=== PATIENT | male | born 1960 | race Caucasian/White ===

== ENCOUNTER 2023-08-01 11:21 | Emergency (ER) | payer MEDICARE, BC, SELFPAY ==
[2023-08-01 11:41] VITALS: BP 140/91; PULSE 74; RESP 16; TEMP 37.4; O2SAT 96; BMI 25.8
--- NOTE | 2023-08-01 11:51 | ED.CHESTPAIN ---
HPI - Chest Pain General Time Seen by Provider: 11:51 Date Seen: 08/01/23 Chief Complaint: Chest Pain Stated Complaint: chest pain Time Seen by Provider: 08/01/23 11:41 Source: patient and RN notes reviewed Mode of arrival: ambulatory Limitations: no limitations History of Present Illness HPI narrative: This 63-year-old male is coming in to the ER with concern of some left-sided chest symptoms he had earlier today. Patient states he had some baked goods for breakfast, after that around 9:00 a.m. and lasting for maybe 2 hours, had indigestion/heartburn feelings but the pain moved into his left chest. He has no prior history of any cardiac or respiratory disease. He is a nonsmoker. He does note history of heartburn. He believes he had an EGD maybe 25 years ago. He does endorse a using some [id number] antacid/proton pump inhibitor type medicines periodically. He has not had any cough or cold symptoms, noted no palpitations or irregular heartbeat, no shortness of breath with these symptoms. He is asymptomatic now. He notes his mom had congestive heart failure but was obese, she had no known heart attack or ischemic disease that he is aware of. There is no family history of anyone with MD that he is aware of. MD complaint: chest pain Risk Factors Coronary artery disease risk factors: hyperlipidemia and hypertension Related Data Home Medications Medication Instructions Recorded Confirmed atorvastatin 20 mg tablet 20 mg PO QPM 08/01/23 08/01/23 chlorthalidone 25 mg tablet 12.5 mg PO DAILY blood pressure 08/01/23 08/01/23 lisinopril 40 mg tablet 40 mg PO DAILY 08/01/23 08/01/23 Allergies Allergy/AdvReac Type Severity Reaction Status Date / Time No Known Drug Allergies Allergy Verified 08/01/23 11:44 Review of Systems Status of ROS Reports: 6 or more systems reviewed and unremarkable except as noted in History and below PFSH PFSH Social History Smoking Status: Never smoker How often do you have a drink containing alcohol: 2-3 times a week AUDIT-C Alcohol total score: 3 Non-prescribed substance use: denies use Exam Const Vital Signs, click to edit/add: Vital Signs - 24 hr 08/01/23 11:41 08/01/23 12:01 Temperature 99.3 F Pulse Rate [Apical] 74 Respiratory Rate 16 Blood Pressure [Left Upper Arm] 140/91 H Pulse Oximetry 96 95 Oxygen Delivery Method Room Air Patient is alert, interactive, no apparent distress. He is mildly anxious but very pleasant. Sclera clear, conjugate gaze, pupils are equal and round. Symmetrical facial function, speech is normal. Neck is supple, no cervical adenopathy, no thyromegaly masses or nodules. Sits up easily, lungs are clear, good air entry, no wheezing or crackles. CV regular rate and rhythm, no murmur, normal S1-S2, no S3 or S4. Abdomen is soft, no rebound or guarding, no organomegaly, not distended, has normal bowel sounds. He has no lower extremity edema, no calf tenderness. Documenting provider has reviewed patient's vital signs: yes Course Course ED Course: We will rule patient out for cardiac disease. Given his history, do have a high suspicion that this certainly could be GI with reflux. He could be developing esophagitis or esophageal changes. Will have him on cardiac monitoring, pulse oximetry, start with a portable chest x-ray. He will get an EKG and labs. Nursing staff is already drawn a point of care troponin on him. Will consider thromboembolic disease as well, doing screening D-dimer. Again at this time, patient is asymptomatic. If his point of care troponin is elevated, will initiate aspirin and discuss with Cardiology. Reevaluation(s) Time of Reevaluation #1: 13:05 Reevaluation #1: Reviewed with patient that his white blood count is a bit low. We did discuss testing for viral pathology with a triple viral swab. I did review with him that if this comes back negative, would recommend that his CBC be rechecked in about 2-4 weeks. We did discuss that sometimes people can be developing blood line abnormalities that would warrant further workup. There is nothing emergent that we would do today but it it might be important down the road for him. Thus, the need for follow-up if the viral swabs are negative. Time of Reevaluation #2: 14:36 Reevaluation #2: Reviewed with patient that the cardiac enzymes and EKGs are stable, he has not had an acute MD. Did review with him that we have not ruled out the potential for underlying heart disease however. Do recommend that he has outpatient stress testing. He does endorse underlying GI symptoms/GERD symptoms, would recommend that he consider getting an EGD. He declines any proton pump inhibitor from me. We also reviewed his mildly low white blood count, mildly low hemoglobin. Do recommend a repeat CBC in 2-4 weeks, consideration for Hematology referral if these abnormalities continue. Of note, patient did just have a colonoscopy last week with Dr. Hunt. Patient has 3 points, low risk heart score. Vital Signs Vital signs: Initial Vital Signs Temperature 99.3 F 08/01/23 11:41 Temperature Source Temporal Artery Scan 08/01/23 11:41 Pulse Rate 74 08/01/23 11:41 Pulse Rhythm Regular 08/01/23 11:41 Respiratory Rate 16 08/01/23 11:41 Respiratory Effort Normal 08/01/23 11:41 Respiratory Depth Normal 08/01/23 11:41 Respiratory Pattern Normal 08/01/23 11:41 Blood Pressure 140/91 H 08/01/23 11:41 Blood Pressure Mean 107 H 08/01/23 11:41 Blood Pressure Position Semi-Fowlers 08/01/23 11:41 Pulse Oximetry 96 08/01/23 11:41 Oxygen Delivery Method Room Air 08/01/23 11:41 Vital Signs Temperature 99.3 F 08/01/23 11:41 Pulse Rate 74 08/01/23 11:41 Respiratory Rate 16 08/01/23 11:41 Blood Pressure 140/91 H 08/01/23 11:41 Pulse Oximetry 96 08/01/23 11:41 Oxygen Delivery Method Room Air 08/01/23 11:41 Temperature 99.3 F 08/01/23 11:41 Pulse Rate 74 08/01/23 11:41 Respiratory Rate 16 08/01/23 11:41 Blood Pressure 140/91 H 08/01/23 11:41 Pulse Oximetry 95 08/01/23 12:01 Oxygen Delivery Method Room Air 08/01/23 11:41 MDM - Chest Pain Lab Data Attestation: I reviewed the patient's lab results. Labs: Lab Results 08/01/23 08/01/23 08/01/23 Range/Units 11:35 12:10 13:05 WBC 3.10 L (4.50-11.00) K/uL RBC 3.86 L (4.30-5.90) m/uL Hgb 12.4 L (13.5-17.5) gm/dL Hct 36.0 L (37.0-53.0) % MCV 93 (80-100) fL MCH 32 (26-34) pg MCHC 34 (32-36) gm/dL RDW Coeff of Madonna 12.7 (11.5-15.5) % Plt Count 221 (140-440) K/uL Neut % (Auto) 58.4 (42.0-72.0) % Lymph % (Auto) 26.1 (20-44) % Bourbon % (Auto) 12.3 H (0.0-11.0) % Eos % (Auto) 1.6 (0.0-7.0) % Baso % (Auto) 0.3 (0.0-3.0) % Neut # (Auto) 1.80 (1.7-7.0) K/uL Lymph # (Auto) 0.80 L (0.90-2.90) K/uL Bourbon # (Auto) 0.40 (0.00-0.90) K/UL Eos # (Auto) 0.00 (0.00-0.50) K/uL Baso # (Auto) 0.00 (0.00-0.30) K/uL Abs Immat Gran (auto) 0.00 (0.00-0.30) K/uL Imm/Tot Granulo (auto) 1.3 % D-Dimer Quant (PE/DVT) < 0.27 (0.00-0.50) ug/ml Sodium 136 (135-149) mmol/L Potassium 3.6 (3.6-5.1) mmol/L Chloride 103 (96-114) mmol/L Carbon Dioxide 22 (20-32) mmol/L Anion Gap 11 (7-15) mEq/L BUN 18 (7-30) mg/dL Creatinine 1.0 (0.5-1.5) mg/dL Estimated Creat Clear 80.83 Estimated GFR 84 ml/min Glucose 117 H (60-115) mg/dL Lactate 1.5 (0.5-1.9) mmol/L Calcium 8.9 (8.4-10.6) mg/dL Magnesium 1.8 (1.5-2.6) mg/dL Total Bilirubin 0.4 (0.1-1.5) mg/dL AST 22 (12-35) U/L ALT 18 (4-50) U/L Alkaline Phosphatase 48 (40-150) U/L C-Reactive Protein 0.6 (0.5-1.0) mg/dL NT-Pro-B Natriuret Pep 64 pg/mL Total Protein 7.1 (6.0-8.3) g/dL Albumin 4.5 (3.3-5.0) g/dL Lipase 129 (23-300) U/L SARS-CoV-2 (PCR) Negative SARS-CoV-2 (Negative) Influenza Type A (PCR) Negative PCR FLU A (Negative) Influenza Type B (PCR) Negative PCR FLU B (Negative) RSV (PCR) Negative PCR RSV (Negative) POC Troponin I 0.00 L (0.01-0.04) ng/ml 08/01/23 Range/Units 14:05 WBC (4.50-11.00) K/uL RBC (4.30-5.90) m/uL Hgb (13.5-17.5) gm/dL Hct (37.0-53.0) % MCV (80-100) fL MCH (26-34) pg MCHC (32-36) gm/dL RDW Coeff of Madonna (11.5-15.5) % Plt Count (140-440) K/uL Neut % (Auto) (42.0-72.0) % Lymph % (Auto) (20-44) % Bourbon % (Auto) (0.0-11.0) % Eos % (Auto) (0.0-7.0) % Baso % (Auto) (0.0-3.0) % Neut # (Auto) (1.7-7.0) K/uL Lymph # (Auto) (0.90-2.90) K/uL Bourbon # (Auto) (0.00-0.90) K/UL Eos # (Auto) (0.00-0.50) K/uL Baso # (Auto) (0.00-0.30) K/uL Abs Immat Gran (auto) (0.00-0.30) K/uL Imm/Tot Granulo (auto) % D-Dimer Quant (PE/DVT) (0.00-0.50) ug/ml Sodium (135-149) mmol/L Potassium (3.6-5.1) mmol/L Chloride (96-114) mmol/L Carbon Dioxide (20-32) mmol/L Anion Gap (7-15) mEq/L BUN (7-30) mg/dL Creatinine (0.5-1.5) mg/dL Estimated Creat Clear Estimated GFR ml/min Glucose (60-115) mg/dL Lactate (0.5-1.9) mmol/L Calcium (8.4-10.6) mg/dL Magnesium (1.5-2.6) mg/dL Total Bilirubin (0.1-1.5) mg/dL AST (12-35) U/L ALT (4-50) U/L Alkaline Phosphatase (40-150) U/L C-Reactive Protein (0.5-1.0) mg/dL NT-Pro-B Natriuret Pep pg/mL Total Protein (6.0-8.3) g/dL Albumin (3.3-5.0) g/dL Lipase (23-300) U/L SARS-CoV-2 (PCR) (Negative) Influenza Type A (PCR) (Negative) Influenza Type B (PCR) (Negative) RSV (PCR) (Negative) POC Troponin I 0.01 (0.01-0.04) ng/ml Imaging Data Chest x-ray: Attestation: I have reviewed the pertinent imaging results. Radiologist's impression: Patient: ASHLIE GE Facility:?[facility] Patient ID:?[id number] Site Patient ID:?[id number]. Site :?[id number] Study:?XRay Chest 1v portable-08/01/2023 12:19:19 PM Ordering Physician:?Brandi Camilo Final Report: INDICATION: Left-sided chest discomfort. TECHNIQUE: Chest 1 view. COMPARISON: None FINDINGS: Cardiovascular and mediastinum: Heart size and vasculature are normal in caliber and appearance. Mediastinum is within normal limits. Lungs and pleural space: Lungs are clear. No sign of infiltrate or mass. No sign of pleural effusion. No pneumothorax. Bones and soft tissues: No significant findings. IMPRESSION: Unremarkable chest. Dictated by David Campbell MD @ 08/01/2023 1:53:14 PM (Electronic Signature) ECG Data Attestation: I personally reviewed and interpreted this ECG as follows: (Normal sinus rhythm, 81 beats per minute. No ischemia noted. QT corrected 455 milliseconds.) ECG interpretation date: 08/01/23 ECG interpretation time: 12:43 Interpretation: 1402pm normal sinus rhythm, 70 beats per minute. No ischemia, QT corrected 4 and 37 milliseconds. No concerning change. Critical Care Time Critical Care Time Critical Care Time: No Discharge Plan Discharge Clinical Impression: Atypical chest pain Patient Disposition: Home, Self-Care Condition: Stable Instructions: Chest Pain (ED), Noncardiac Chest Pain (ED) Additional Instructions: Need to follow up with primary provider in the next 1-2 weeks. Need CBC repeated at some point (wbc and hemoglobin were mildy low today); if these cell lines continue to be mildly low, would consider having you see hematology and further blood work done. Need to consider having an be done for your underlying reflux symptoms. Also discussed with your primary care provider about having a cardiac stress test ordered. In the meantime, she you have worsening chest pain, further concerns, do recommend re-evaluation. Activity Level: Activity as Tolerated Prescriptions: No Action atorvastatin 20 mg tablet 20 mg PO QPM chlorthalidone 25 mg tablet 12.5 mg PO DAILY lisinopril 40 mg tablet 40 mg PO DAILY Follow Up/Referrals: Jarred Brock MD [Primary Care Provider] - Stand Alone Forms: [facility] Info Instructions
[2023-08-01 12:01] VITALS: O2SAT 95
--- NOTE | 2023-08-01 12:10 | CRLHL7_ITS ---
For Patients: As a result of the Century Cures Act, medical imaging exams and procedure reports are released immediately into your electronic medical record. You may view this report before your referring provider. If you have questions, please contact your health care provider. INDICATION: Left-sided chest discomfort. TECHNIQUE: Chest 1 view. COMPARISON: None FINDINGS: Cardiovascular and mediastinum: Heart size and vasculature are normal in caliber and appearance. Mediastinum is within normal limits. Lungs and pleural space: Lungs are clear. No sign of infiltrate or mass. No sign of pleural effusion. No pneumothorax. Bones and soft tissues: No significant findings. IMPRESSION: Unremarkable chest. Dictated by David Campbell MD @ 08/01/2023 1:53:14 PM (Electronically Signed)
[2023-08-01 12:19] LABS: Lactate* 1.5 mmol/L (0.5-1.9)
[2023-08-01 12:20] LABS: Basophils Percent Auto 0.3 % (0.0-3.0); Eosinophils Percent Auto 1.6 % (0.0-7.0); Hemoglobin* 12.4 gm/dL (13.5-17.5); Immature Granulocytes Pct Auto 1.3 %; Lymphocytes Percent Auto 26.1 % (20-44); Mean Corpuscular HGB Conc 34 gm/dL (32-36); Mean Corpuscular Hemoglobin 32 pg (26-34); Mean Corpuscular Volume 93 fL (80-100); Monocytes Percent Auto 12.3 % (0.0-11.0); Neutrophils Percent Auto 58.4 % (42.0-72.0); Platelet Count* 221 K/uL (140-440); RDW Coefficient of Variation % 12.7 % (11.5-15.5); Red Blood Count 3.86 m/uL (4.30-5.90)
[2023-08-01 12:21] LABS: Slide Review Reflex No
[2023-08-01 12:39] LABS: Albumin* 4.5 g/dL (3.3-5.0); Chloride* 103 mmol/L (96-114)
[2023-08-01 12:40] LABS: Potassium* 3.6 mmol/L (3.6-5.1); Sodium* 136 mmol/L (135-149)
[2023-08-01 12:42] LABS: Bilirubin Total* 0.4 mg/dL (0.1-1.5); Est. Creatinine Clearance* 80.83; Estimated Glomerular Filt Rate 84 ml/min
[2023-08-01 12:43] LABS: Alanine Aminotransferase* 18 U/L (4-50); Alkaline Phosphatase* 48 U/L (40-150); Anion Gap 11 mEq/L (7-15); Aspartate Amino Transferase* 22 U/L (12-35); Blood Urea Nitrogen* 18 mg/dL (7-30); Calcium* 8.9 mg/dL (8.4-10.6); Carbon Dioxide* 22 mmol/L (20-32); Glucose* 117 mg/dL (60-115); Lipase* 129 U/L (23-300); Magnesium* 1.8 mg/dL (1.5-2.6); Total Protein* 7.1 g/dL (6.0-8.3)
[2023-08-01 12:45] LABS: C Reactive Protein* 0.6 mg/dL (0.5-1.0)
[2023-08-01 12:48] LABS: D Dimer Quantitative* < 0.27 ug/ml (0.00-0.50)
[2023-08-01 12:53] LABS: NT Pro B Type NatriureticPept* 64 pg/mL
[2023-08-01 13:52] LABS: PCR FLU A Negative PCR FLU A (Negative); PCR FLU B Negative PCR FLU B (Negative); PCR RSV Negative PCR RSV (Negative)
[2023-08-01 13:53] LABS: SARS PCR* Negative SARS-CoV-2 (Negative)
[2023-08-01 14:33] LABS: Troponin, Point-of-Care* 0.01 ng/ml (0.01-0.04)
--- NOTE | 2023-08-01 14:55 | ED.NURSE ---
Pt vitals were deleted before entered into the computer. Pt was vitally stable and denied pain throughout ER visit.
== END 2023-08-01 14:57 | disposition home or self-care (01) ==
PROVIDERS: Emergency Provider Family Medicine; PCP Family Medicine
DX: R07.9 Chest pain, unspecified (principal)
CPT/HCPCS: 36415; 71045; 80053; 83605; 83690; 83735; 83880; 84484; 85025; 85379; 86140; 87631; 94761; 99284